=== PATIENT | female | born 1955 ===

== ENCOUNTER 2018-03-16 12:33 | Outpatient (CLI) | payer OTHER ==
[~2018-03-16 12:33] MED LIST: ALIVE WOMEN'S1 EAC1 PO; AMBIEN10 MG PO; CLONAZEPAM0.5 MG PO; [UNRECOGNIZED DRUG - OTHER] PO
== END 2018-03-16 12:36 | disposition home or self-care (01) ==
LOC: MAMO-SONO 12:33
DX: Z12.31 Encounter for screening mammogram for malignant neoplasm of breast (principal); Z78.0 Asymptomatic menopausal state; Z78.9 Other specified health status; N95.1 Menopausal and female climacteric states; N60.19 Diffuse cystic mastopathy of unspecified breast; N64.4 Mastodynia; R92.2 Inconclusive mammogram; N64.89 Other specified disorders of breast

== ENCOUNTER 2018-03-16 14:19 | Outpatient (CLI) | payer OTHER | END 2018-03-16 15:00 | disposition home or self-care (01) | LOC: NUCLEAR 14:19 | DX: M81.0 Age-related osteoporosis without current pathological fracture (principal) ==

== ENCOUNTER 2018-12-15 09:18 | Outpatient (CLI) | payer OTHER | END 2018-12-15 09:27 | disposition home or self-care (01) | LOC: TOM 09:18 | DX: R10.10 Upper abdominal pain, unspecified (principal) ==

== ENCOUNTER 2019-03-17 14:18 | Outpatient (CLI) | payer OTHER | END 2019-03-17 14:28 | disposition home or self-care (01) | LOC: MAMO-SONO 14:18 | DX: N64.4 Mastodynia (principal); Z78.0 Asymptomatic menopausal state; Z78.9 Other specified health status; N60.19 Diffuse cystic mastopathy of unspecified breast; R92.2 Inconclusive mammogram; N63.10 Unspecified lump in the right breast, unspecified quadrant; N63.20 Unspecified lump in the left breast, unspecified quadrant; Z12.31 Encounter for screening mammogram for malignant neoplasm of breast ==

== ENCOUNTER 2020-04-29 10:21 | Outpatient (CLI) | payer OTHER | END 2020-04-29 10:27 | disposition home or self-care (01) | LOC: MAMO-SONO 10:21 | PROVIDERS: ATTEND Obstetrics & Gynecology | DX: N64.4 Mastodynia (principal); Z12.31 Encounter for screening mammogram for malignant neoplasm of breast; N63.0 Unspecified lump in unspecified breast ==

== ENCOUNTER 2021-09-19 09:04 | Outpatient (CLI) | payer OTHER | END 2021-09-19 09:32 | disposition home or self-care (01) | LOC: TOM 09:04 | PROVIDERS: ATTEND Internal Medicine Gastroenterology | DX: Q51.818 Other congenital malformations of uterus (principal); K44.9 Diaphragmatic hernia without obstruction or gangrene; K59.01 Slow transit constipation; K21.9 Gastro-esophageal reflux disease without esophagitis; R10.10 Upper abdominal pain, unspecified | CPT/HCPCS: 74177; Q9965 ==